=== PATIENT | female | born 1965 | race Hispanic/Latino ===

== ENCOUNTER 2019-09-25 08:06 | Day surgery (SDC) | payer MEDICAID ==
[~2019-09-25] VITALS: Ht 172.7 cm; Wt 102.1 kg
[~2019-09-25 08:06] MED LIST: SODIUM CHLORIDE 0.9% 1000ML 1,000 ML IV ONE
[2019-09-25 10:23] VITALS: BP 119/71
[2019-09-25] MEDS ORDERED: DYMISTA (10:45)
[2019-09-25] MEDS ORDERED: MONTELUKAST (10:45)
[2019-09-25] MEDS ORDERED: ATORVASTATIN (10:45)
[2019-09-25] MEDS ORDERED: TYLENOL (10:45)
[2019-09-25] MEDS ORDERED: TRAZADONE (10:45)
[2019-09-25] MEDS ORDERED: CETIRIZINE (10:45)
[2019-09-25] MEDS ORDERED: VITAMIN D3 (10:45)
[2019-09-25] MEDS ORDERED: LISINOPRIL (10:45)
[2019-09-25] MEDS ORDERED: SERTRALINE (10:45)
[2019-09-25] MEDS ORDERED: ESOM40CA PO (10:45)
[2019-09-25] MEDS ORDERED: TESSALON PERLE (10:45)
[2019-09-25] MEDS ORDERED: LANTUS (10:45)
[2019-09-25] MEDS ORDERED: SYMBICORT (10:45)
[2019-09-25] MEDS ORDERED: INVOKANA (10:45)
[2019-09-25] MEDS ORDERED: TRADJENTA (10:45)
[2019-09-25] MEDS ORDERED: PROPOFOL 10 MG/ML 20ML VIAL IV ONE (11:11)
[2019-09-25 11:31] VITALS: BP 96/72
[2019-09-25 11:36] VITALS: BP 105/77
[2019-09-25 11:42] VITALS: BP 115/79
[2019-09-25 11:50] VITALS: BP 115/70
--- NOTE | 2019-09-25 11:50 | NUR ---
PREP DISCHARGE GIVEN TO BROTHER ON IMPORTANCE OF PT DRINKING ONLY CLEAR LIQUIDS FOR REMAINDER OF DAY DUE TO POOR PREP. PT TO HAVE REPEAT COLONOSCVOPY TOMORROW. PT AND PTS BOTHER VERBALIZED UNDERSTANDING.
== END 2019-09-25 12:05 | disposition home or self-care (01) ==
LOC: DAH 08:06 → ENDO 08:06
PROVIDERS: ATTEND Internal Medicine
DX: K59.00 Constipation, unspecified (principal); R12 Heartburn; K29.50 Unspecified chronic gastritis without bleeding; K31.7 Polyp of stomach and duodenum; I10 Essential (primary) hypertension; E11.9 Type 2 diabetes mellitus without complications; E78.5 Hyperlipidemia, unspecified; Z79.899 Other long term (current) drug therapy; J45.909 Unspecified asthma, uncomplicated; Z79.4 Long term (current) use of insulin; Z82.49 Family history of ischemic heart disease and other diseases of the circulatory system
CPT/HCPCS: 43251; 45378; 82948 ×2; 88304; A4215; A4221; A4222; A4223; A4606; A4620; A4663; J2704; J7030

== ENCOUNTER 2019-09-26 06:00 | Day surgery (SDC) | payer MEDICAID ==
[~2019-09-26] VITALS: Ht 172.7 cm; Wt 106.6 kg
[2019-09-26] VITALS (8 sets, daily range): BP systolic 123–139; BP diastolic 78–91
[~2019-09-26 06:00] MED LIST changes: +ATORVASTATIN; +CETIRIZINE; +DYMISTA; +ESOM40CA PO; +INVOKANA; +LANTUS; +LISINOPRIL; +MONTELUKAST; +SERTRALINE; +SYMBICORT; +TESSALON PERLE; +TRADJENTA; +TRAZADONE; +TYLENOL; +VITAMIN D3
[2019-09-26] MEDS ORDERED: PROPOFOL 10 MG/ML 20ML VIAL IV ONE (06:29)
[2019-09-26] MEDS ORDERED: SIMETHICONE 40 MG/0.6 ML ML ONE (06:51)
== END 2019-09-26 07:40 | disposition home or self-care (01) ==
LOC: DAH 06:00 → ENDO 06:00
PROVIDERS: ATTEND Internal Medicine
DX: K59.00 Constipation, unspecified (principal); I10 Essential (primary) hypertension; E11.9 Type 2 diabetes mellitus without complications; E78.5 Hyperlipidemia, unspecified; J45.909 Unspecified asthma, uncomplicated; M19.90 Unspecified osteoarthritis, unspecified site; Z79.899 Other long term (current) drug therapy; Z79.4 Long term (current) use of insulin; Z82.49 Family history of ischemic heart disease and other diseases of the circulatory system
CPT/HCPCS: 45378; 82948; A4215; A4221; A4222; A4223; A4606; A4615; A4663; J2704; J7030